=== PATIENT | female | born 1985 | race Caucasian/White ===

== ENCOUNTER 2016-11-21 18:56 | Emergency (ER) | payer MEDICAID ==
[~2016-11-21] VITALS: Ht 167.6 cm; Wt 108.9 kg
[2016-11-21 19:20] VITALS: BP 131/85
--- NOTE | 2016-11-21 19:39 | NUR ---
PT TAKEN TO XRAY
--- NOTE | 2016-11-21 19:43 | NUR ---
PT RETURN FROM XRAY
--- NOTE | 2016-11-21 21:06 | NUR ---
PT TAKEN TO BED 6
--- NOTE | 2016-11-21 21:06 | NUR ---
PATIENT PRESENTS TO ED WITH CHEST PAIN, STARTED THIS MORNING, WHILE RELAXING, SHARP AND STABBING 8/10 BUT HAS CEASED NOW SINCE PT HAS BEEN IN THE LOBBY. PT DENIES V/D; SKIN IS PINK/WARM/DRY; AAOX4 WITH EVEN AND STEADY GAIT; LUNGS CLEAR BL; HR EVEN AND REGULAR; PT DENIES ANY FEVER, SOB, OR COUGH AT THIS TIME; PATIENT STATES PAIN OF 8/10 AT THIS TIME; VSS; PATIENT POSITIONED FOR COMFORT; HOB ELEVATED; BEDRAILS UP X2; BED DOWN. ER MD MADE AWARE OF PT STATUS.
--- NOTE | 2016-11-21 21:41 | NUR ---
Dr. Mitchell evaluting patient at bedside.
--- NOTE | 2016-11-21 21:58 | NUR ---
Patient discharged with v/s stable. Written and verbal after care instructions given and explained. Patient alert, oriented and verbalized understanding of instructions. Ambulatory with steady gait. All questions addressed prior to discharge. ID band removed. Patient advised to follow up with PMD. Rx of ZPACK AND MOTRIN 800MG given. Patient educated on indication of medication including possible reaction and side effects. Opportunity to ask questions provided and answered.
[2016-11-21 21:59] VITALS: BP 129/79
== END 2016-11-21 21:58 | disposition home or self-care (01) ==
LOC: MED 18:56
DX: J18.9 Pneumonia, unspecified organism (principal); Z88.1 Allergy status to other antibiotic agents; Z88.8 Allergy status to other drugs, medicaments and biological substances; Z90.49 Acquired absence of other specified parts of digestive tract; Z85.71 Personal history of Hodgkin lymphoma
CPT/HCPCS: 71020; 81002; 81025; 93005; 99284